=== PATIENT | female | born 1990 | race Caucasian/White ===

== ENCOUNTER 2017-07-02 18:11 | Emergency (ER) | payer MEDICAID ==
[~2017-07-02] VITALS: Ht 160 cm; Wt 70.3 kg
--- NOTE | 2017-07-02 19:41 | NUR ---
Patient discharged to home in stable conditon. Written and verbal after care instructions given. Patient verbalizes understanding of instructions.
== END 2017-07-02 19:42 | disposition home or self-care (01) ==
LOC: ER 18:12
DX: J06.9 Acute upper respiratory infection, unspecified (principal)
CPT/HCPCS: 99283; A4663

== ENCOUNTER 2018-03-09 20:20 | Emergency (ER) | payer MEDICAID ==
[~2018-03-09] VITALS: Ht 165.1 cm; Wt 52.2 kg
--- NOTE | 2018-03-09 20:33 | NUR ---
PT C/O LOWER ABD PAIN/PRESSURE X2 DAYS. DENIES N/V, CRAMPING, DIARRHEA, OR OTHER GI SYMPTOMS. PAIN NONRADIATING. PER PT, SHE TOOK A TEST AT HOME THAT CAME BACK POSITIVE. URINE SENT TO LAB
--- NOTE | 2018-03-09 20:36 | NUR ---
DR AYESHA ROSALES MD AT BEDSIDE FOR MSE.
[2018-03-09 20:43] LABS: *BILIRUBIN,URIN NEGATIVE (NEGATIVE); *BLOOD, URINE NEGATIVE (NEGATIVE); *CLARITY,URINE CLEAR (CLEAR); *COLOR,URINE YELLOW (YELLOW); *KETONES,URINE NEGATIVE (NEGATIVE); *PROTEIN,URINE NEGATIVE (NEGATIVE); *UROBILINOGEN,URINE 0.2 E.U./dl (NORMAL); LEUKOCYTE ESTERASE ,URINE NEGATIVE (NEGATIVE); NITRITE, URINE NEGATIVE (NEGATIVE); UGLUCOSE NEGATIVE (NEGATIVE)
--- NOTE | 2018-03-09 20:48 | NUR ---
HOME TEACHING GRADES 9 THRU 12 TEACHER AT BEDSIDE FOR BLOOD DRAW
[2018-03-09 20:57] LABS: BASOPHILS # (AUTO) 0.1 K/uL (0.0-8.0); BASOPHILS % (AUTO) 0.6 % (0.0-2.0); EOSINOPHILS # (AUTO) 0.1 K/uL (0.0-0.7); EOSINOPHILS % (AUTO) 0.7 % (0.0-7.0); HEMATOCRIT 34.7 % (31.2-41.9); HEMOGLOBIN 11.9 g/dL (10.9-14.3); LYMPHOCYTES # (AUTO) 1.9 K/uL (20.0-40.0); LYMPHOCYTES % (AUTO) 19.1 % (20.5-51.5); MEAN CORPUSCULAR HEMOGLOBIN 31.3 uug (24.7-32.8); MEAN CORPUSCULAR HGB CONC 34 g/dL (32.3-35.6); MEAN CORPUSCULAR VOLUME 91.3 fL (75.5-95.3); MONOCYTES # (AUTO) 0.8 K/uL (2.0-10.0); MONOCYTES % (AUTO) 7.7 % (0.0-11.0); NEUTROPHILS # (AUTO) 7.2 K/uL (1.8-8.9); NEUTROPHILS % (AUTO) 71.9 % (38.5-71.5); PLATELET COUNT (AUTO) 258 K/uL (179-408)
--- NOTE | 2018-03-09 21:01 | NUR ---
US AT PT BEDSIDE.
[2018-03-09 21:06] LABS: CREATININE 0.7 mg/dL (0.6-1.3); POTASSIUM 4.1 mmol/L (3.5-5.1)
[2018-03-09 21:08] LABS: BACTERIA,URINE FEW /HPF (NONE SEEN); SQUAMOUS EPITHELIAL CELL,UR FEW /HPF (NONE SEEN); WBC,URINE 0-3 /HPF (0-3)
--- NOTE | 2018-03-09 22:25 | NUR ---
Patient discharged to home in stable conditon. Written and verbal after care instructions given. Patient verbalizes understanding of instructions. PT ambulated from ER w/ steady gait. VSS. No distress noted. Pt took all personal belongings.
[2018-03-09 22:26] VITALS: BP 118/72
== END 2018-03-09 22:27 | disposition home or self-care (01) ==
LOC: ER 20:22
DX: O26.891 Other specified pregnancy related conditions, first trimester (principal); R10.2 Pelvic and perineal pain; Z3A.00 Weeks of gestation of pregnancy not specified
CPT/HCPCS: 36415; 76856; 80048; 81001; 84702; 85025; 99285; A4663